=== PATIENT | male | born 1955 | race African-American/Black ===

== ENCOUNTER 2017-02-17 17:54 | Emergency (ER) | payer OTHER ==
[~2017-02-17] VITALS: Ht 165.1 cm; Wt 79.2 kg
[2017-02-17 18:19] VITALS: TEMP 37.1; Ht 165.1 cm; Wt 79.2 kg
[2017-02-17 18:34] VITALS: BP 126/73; PULSE 63; O2SAT 100
--- NOTE | 2017-02-17 18:49 | EMERGENCY ROOM VISIT NOTE ---
History Report prepared by Ji: Marcella Farley Under the Supervision of: Dr. José Luis Cleaning M.D. First contact with patient: 17:56 Stated Complaint: SUICIDE ATTEMP/HANG /SCI KELVIN History of Present Illness The patient is a 62 year old male who presents to the Emergency Room after an episode of attempted suicide beginning just TURNING [employer]HE [employer]ENDER. Per EMS, the patient attempted to hang himself using a sheet. The patient states that he was talking to another prisoner and said that he should hang himself and when the man told him to do it, he decided that he would. He reports that he used a sheet and jumped from the top bunk. He reports that he is having some spine pain from hitting the ground. He denies any loss of consciousness and neck pain. The patient states that after he jumped he felt short of breath but that has now resolved. Source of History: patient, EMS Onset: just TURNING [employer] Position: other (suicide attempt) Timing: other (episode) Associated Symptoms: No LOC, No neck pain Note: Pt complains of spine pain. Review of Systems See HPI for pertinent positives & negatives. A total of 10 systems reviewed and were otherwise negative. Past Medical & Surgical Medical Problems: (1) No chronic problems (2) No known health problems Family History No pertinent family history stated. Social History Marital Status: single Housing Status: other (prisoner) Occupation Status: employed Current/Historical Medications Unable to Obtain Active Prescriptions or Reported Meds Physical Exam Vital Signs Date Time Temp Pulse Resp B/P (MAP) Pulse Ox O2 Delivery O2 Flow Rate FiO2 02/17/17 18:34 63 18 126/73 100 02/17/17 18:19 37.1 63 18 126/73 100 Room Air Physical Exam GENERAL: Patient is a healthy-appearing well-nourished male speaking in full sentences HEAD: Normocephalic atraumatic EYES: Ocular movements intact pupils equal and react to light OROPHARYNX mucous membranes are moist no exudates present no erythema or edema present NECK: Supple no nuchal rigidity, no ligature levi, no neck pain, no redness or swelling to anterior or posterior neck, no stridor CHEST: Good equal expansion LUNGS: Clear and equal to auscultation CARDIAC: Normal S1 and S2 ABDOMEN: Soft nontender no guarding BACK: No CVA tenderness EXTREMITIES: No pain upon palpation normal muscle strength in all groups no clubbing cyanosis or edema NEURO: Patient is following commands and answering questions appropriately. Alert and oriented x3 Cranial Nerves 2-12 grossly intact, neurovascularly intact Medical Decision & Procedures ED Course 1755: Past medical records reviewed. The patient was evaluated in room C6. A complete history and physical examination was performed. 1827: Upon reexamination the patient is doing well. I discussed results and treatment plan with the patient. He verbalizes agreement and understanding. The patient is ready for discharge. Medical Decision Differential diagnosis: Etiologies such as fracture, dislocation, intra-abdominal, pneumothorax, intrathoracic , intracranial, neurologic, as well as other traumatic pathologies were entertained. Blood Pressure Screening: Patient was found to have normal blood pressure on screening and does not require follow up. Medication Reconciliation: I attest that I have personally reviewed the patient' s current medication list This is a 61-year-old male who presents emergency department after attempted hanging. The patient has no ligature levi and has no neck pain. He also did not lose consciousness and he reports that his feet nevertheless the ground. He has no stridor on examination he does not appear to be in any acute distress. I believe based on these findings at the patient can be safely discharged for follow-up with the nursing home. Patient and guardians were in agreement with treatment plan. Impression Primary Impression: Suicide attempt by hanging Scribe Attestation The scribe's documentation has been prepared under my direction and personally reviewed by me in its entirety. I confirm that the note above accurately reflects all work, treatment, procedures, and medical decision making performed by me. Departure Information Dispostion Home / Self-Care Prescriptions Unable to Obtain Active Prescriptions or Reported Meds Forms HOME CARE DOCUMENTATION FORM, IMPORTANT VISIT INFORMATION Additional Instructions You have been examined and treated today on an emergency basis only. This is not a substitute for, or an effort to provide, complete comprehensive medical care. It is impossible to recognize and treat all injuries or illnesses in a single emergency department visit. It is therefore important that you follow up closely with your PCP. Call as soon as possible for an appointment. Thank you for your time and consideration. I look forward to speaking with you again soon. Please don't hesitate to call us if you have any questions. Problem Qualifiers Primary Impression: Suicide attempt by hanging Encounter type: initial encounter Qualified Codes: T71.162A - Asphyxiation due to hanging, intentional self-harm, initial encounter
== END 2017-02-17 18:36 | disposition home or self-care (01) ==
LOC: C.EDC 17:58
DX: T71.162A Asphyxiation due to hanging, intentional self-harm, initial encounter (principal); X58.XXXA Exposure to other specified factors, initial encounter